=== PATIENT | female | born 1980 | race Caucasian/White ===

== ENCOUNTER 2016-03-29 11:21 | Emergency (ER) | payer MEDICAID ==
[~2016-03-29] VITALS: Wt 52.0 kg
[~2016-03-29 11:21] MED LIST: ACET1TAB40 PO; ACET325T33 PO; CEPH-443 PO; DOCU-144 PO; IBUP-1542 PO; METR500T PO; MICO24CM3 VAG; PHEN-538 PO; POLY17PO6 PO
[2016-03-29] MEDS ORDERED: AZIT250T6 PO ×2 (13:50)
[2016-03-29] MEDS ORDERED: ACET325T33 PO (13:51)
--- NOTE | 2016-03-29 14:02 | ERD ---
ER Documentation Chief Complaint Date/Time DATE: 03/29/16 TIME: 13:54 Chief Complaint R EAR PAIN FOR THE PAST FEW DAYS. COUGHING WITH NO DISTRESS HPI The patient is a 36-year-old female with no past medical history who comes with a 1 day complaint of right ear pain and decreased hearing. She reports having a cold for the last 5 days with a nonproductive cough and nasal congestion. She denies dizziness, nausea, vomiting, gait disturbance. She denies fever, chills, diarrhea, constipation, shortness of breath, difficulty breathing, sore throat, headache, neck soreness or stiffness, photophobia, dysuria, flank pain, or any other symptoms or concerns at this time. ROS All systems reviewed and are negative except as per history of present illness. Medications Home Meds Active Scripts Acetaminophen* (Tylenol*) 325 Mg Tablet, 2 TAB PO Q6 Y for PAIN AND OR ELEVATED TEMP, #20 TAB Prov:ISAAC ALVARADO, CLINICAL NUTRITION MANAGER 03/29/16 Azithromycin* (Azithromycin*) 250 Mg Tablet, 500 MG PO ONCE, #1 TAB Prov:ISAAC ALVARADO, LULÚ 03/29/16 Azithromycin* (Azithromycin*) 250 Mg Tablet, 250 MG PO DAILY, #4 TAB Prov:ISAAC ALVARADO, CLINICAL NUTRITION MANAGER 03/29/16 Acetaminophen with Codeine (Acetaminophen-Cod #3 Tablet) 1 Each Tablet, 1 TAB PO Q6H Y for PAIN, #15 TAB Prov:CASSIE NUNES PA-C 11/15/15 Cephalexin* (Keflex*) 500 Mg Capsule, 500 MG PO QID for 7 Days, CAP Prov:CASSIE NUNES PA-C 11/15/15 Phenazopyridine Hcl* (Pyridium*) 200 Mg Tab, 200 MG PO TID Y for URINARY PAIN, # 6 TAB Prov:LUIS ALBERTO VALLEJO MD 10/14/15 Cephalexin* (Keflex*) 500 Mg Capsule, 500 MG PO QID for 5 Days, CAP Prov:LUIS ALBERTO VALLEJO MD 10/14/15 Ibuprofen* (Ibuprofen*) 600 Mg Tablet, 600 MG PO Q6, #30 TAB Prov:PATRICK FARAH PA-C 08/05/15 Acetaminophen* (Tylenol*) 325 Mg Tablet, 2 TAB PO Q8 Y for PAIN AND OR ELEVATED TEMP, #20 TAB Prov:FARAHPATRICK PA-C 05/14/15 Docusate Sodium* (Colace*) 100 Mg Capsule, 100 MG PO TID, #30 CAP Prov:FARAHPATRICK Harmon PA-C 05/14/15 Polyethylene Glycol* (Miralax*) 17 Gm Powd.pack, 17 GM PO DAILY, #7 Prov:PATRICK FARAH PA-C 05/14/15 Miconazole Nitrate* (Monistat 3*) 24 Gm Cmb.pf.crm, 1 APPFUL VAG HS for 3 Days, TUB X 3 Prov:GABRIELLA RITTER 11/22/14 Metronidazole* (Flagyl*) 500 Mg Tablet, 500 MG PO TID for 7 Days, TAB Prov:STONEGABRIELLA Romeo 11/22/14 Allergies Allergies: Coded Allergies: amoxicillin (Verified Allergy, Unknown, 11/14/15) PMhx/Soc History of Surgery: Yes (BREAST AUGMENTATION 4 YEARS AGO) Anesthesia Reaction: No Hx Neurological Disorder: No Hx Respiratory Disorders: No Hx Cardiac Disorders: No Hx Psychiatric Problems: No Hx Miscellaneous Medical Probl: No Hx Alcohol Use: No Hx Substance Use: No Hx Tobacco Use: No Physical Exam Vitals Vital Signs Date Time Temp Pulse Resp B/P Pulse Ox O2 Delivery O2 Flow Rate FiO2 03/29/16 11:29 98.5 80 21 115/69 98 Physical Exam INITIAL VITAL SIGNS: Reviewed by me, afebrile, no tachycardia, oximetry 98% on room air, no tachypnea. GENERAL: Alert. Well developed and well nourished. No respiratory distress. Well -appearing. Nontoxic appearing. No acute distress. HEAD: Head is normocephalic. Atraumatic. No sinus tenderness to palpation. EYES: EOMI. PERRL. No scleral icterus. No conjunctival injection. No clear purulent drainage. ENT: External ears, nose, and mouth normal. Bilateral ear canals clear. Left tympanic membrane pearly/valdes, no erythema, effusion, bulging, or retraction. + Right tympanic membrane with erythema and bulging. No effusion appreciated. Nasal passages patent and without rhinorrhea. Oropharynx is clear and without erythema or exudates. Tonsils +2 and without erythema or exudates. Airway patent. Uvula midline. Moist mucous membranes. NECK: Supple. Full range of motion. Trachea midline. No meningismus. No lymphadenopathy. RESPIRATORY: No tachypnea. Clear to auscultation bilaterally. No wheezing, rales , or rhonchi. CV: Regular rate and rhythm. No murmurs, rubs, or gallops ABDOMEN: Soft, non-distended, non-tender. No guarding. No rebound. No masses. Bowel sounds normal in all quadrants. BACK: No CVA tenderness. Full ROM. EXTREMITIES: No obvious deformity. No clubbing or cyanosis. No edema. SKIN: Warm and dry. No diaphoresis. No obvious rashes or lesions. NEUROLOGIC: Alert and oriented x 3. Appropriate. Face is symmetric. Speech is normal. Moves all extremities equally. Procedures/MDM Nursing Notes Reviewed Previous Medical Records requested via [employer]. EMERGENCY DEPARTMENT COURSE / MEDICAL DECISION MAKING: The patient comes to the ED secondary to right-sided ear pain and decreased hearing for 1 day. Differential diagnosis upon initial evaluation includes but is not limited to: Otitis media, otitis externa, cerumen impaction, viral syndrome, URI, pneumonia , sepsis, meningitis, and others. The patient's history and physical exam are most consistent with right otitis media without effusion. Given the patient's history of present illness, well appearance, afebrile, benign physical exam, oximetry 98% on room air, I have low suspicion at this time for pneumonia, sepsis, meningitis, or any other serious cause of the patient's symptoms. She did not have any clinical evidence of exposed otitis externa or cerumen impaction. Her right tympanic membrane had erythema and bulging consistent with otitis media. She did not have any dizziness, nausea, or vomiting. As such, I feel that the patient is an appropriate candidate for outpatient management and follow-up at this time. Final impression: Otitis media of the right ear Viral syndrome Based on patient's history of present illness and physical examination the decision was made to discharge. There is no evidence of life threatening injuries or illnesses at this time. On re-examination, patient resting in no distress, stable vital signs, reports feeling better and safe for discharge with outpatient follow up with PMD in 2-3 days. Patient given return precautions. She verbalized understanding and agreed to return precautions. She will return here immediately for any new or worsening symptoms. Prescriptions Azithromycin, as the patient has a documented allergy to amoxicillin Tylenol Departure Diagnosis: Primary Impression: Otitis media of right ear Otitis media type: other nonsuppurative Chronicity: acute Recurrence: not specified as recurrent Qualified Code: H65.191 - Other acute nonsuppurative otitis media of right ear, recurrence not specified Additional Impression: Viral syndrome Condition: Stable Patient Instructions: Otitis Media, Abx Tx (Adult) Referrals: your doctor Additional Instructions: Llame al doctor MAANA y kalen zeferino LUIS PARA DENTRO DE 2-3 FALK.Dgale a la secretaria que nosotros le instruimos hacer esta luis.Avise o llame si vaca condicin se empeora antes de la luis. Regresa aqui si peor o no mejor. ISAAC ALVARADO, CLINICAL NUTRITION MANAGER Mar 29, 2016 14:02
== END 2016-03-29 14:09 | disposition home or self-care (01) ==
LOC: FTE 11:21
DX: H65.191 Other acute nonsuppurative otitis media, right ear (principal); B34.9 Viral infection, unspecified
CPT/HCPCS: 99283

== ENCOUNTER 2016-05-08 09:41 | Emergency (ER) | payer MEDICAID ==
[~2016-05-08] VITALS: Wt 52.0 kg
[~2016-05-08 09:41] MED LIST changes: +AZIT250T6 PO
[2016-05-08] MEDS ORDERED: LEVALBUTEROL (NEB) 1.25 MG/0.5 ML AMP INH STA (10:38)
[2016-05-08] MEDS ORDERED: predniSONE 20 MG TAB PO STA (10:38)
--- NOTE | 2016-05-08 10:49 | ERD ---
ER Documentation Chief Complaint Date/Time DATE: 05/08/16 TIME: 10:46 Chief Complaint ASTHMA X 1 WEEK HPI This is a 36-year-old female presenting to the emergency department for rhinitis , rhinorrhea, wheezing and cough 1 week. Patient has a history of seasonal allergies and asthma and has been using her Proventil inhaler and loratadine without relief of symptoms. No shortness of breath or difficulty breathing. No difficulty swallowing or drooling. No chest pain. No fevers or chills. ROS All systems reviewed and are negative except as per history of present illness. Medications Home Meds Active Scripts Fluticasone Propionate (Flonase Allergy Relief) 9.9 Ml [place].susp, 1 SPRAY NASAL DAILY, #1 BOTTLE TO EACH NOSTRIL Prov:SYD WALDROP NP 05/08/16 Albuterol Sulfate* (Proair HFA*) 8.5 Gm Hfa.aer.ad, 2 PUFF INH Q4, #1 INHALER Prov:SYD WALDROP NP 05/08/16 Prednisone* (Prednisone*) 20 Mg Tab, 40 MG PO DAILY for 4 Days, TAB Prov:SYD WALDROP NP 05/08/16 Acetaminophen* (Tylenol*) 325 Mg Tablet, 2 TAB PO Q6 Y for PAIN AND OR ELEVATED TEMP, #20 TAB Prov:ISAAC ALVARADO NP 03/29/16 Azithromycin* (Azithromycin*) 250 Mg Tablet, 500 MG PO ONCE, #1 TAB Prov:ISAAC ALVARADO NP 03/29/16 Azithromycin* (Azithromycin*) 250 Mg Tablet, 250 MG PO DAILY, #4 TAB Prov:ISAAC ALVARADO NP 03/29/16 Acetaminophen with Codeine (Acetaminophen-Cod #3 Tablet) 1 Each Tablet, 1 TAB PO Q6H Y for PAIN, #15 TAB Prov:CASSIE NUNES PA-C 11/15/15 Cephalexin* (Keflex*) 500 Mg Capsule, 500 MG PO QID for 7 Days, CAP Prov:CASSIE NUNES PA-C 11/15/15 Phenazopyridine Hcl* (Pyridium*) 200 Mg Tab, 200 MG PO TID Y for URINARY PAIN, # 6 TAB Prov:LUIS ALBERTO VALLEJO MD 10/14/15 Cephalexin* (Keflex*) 500 Mg Capsule, 500 MG PO QID for 5 Days, CAP Prov:LUIS ALBERTO VALLEJO MD 10/14/15 Ibuprofen* (Ibuprofen*) 600 Mg Tablet, 600 MG PO Q6, #30 TAB Prov:PATRICK FARAH PA-C 08/05/15 Acetaminophen* (Tylenol*) 325 Mg Tablet, 2 TAB PO Q8 Y for PAIN AND OR ELEVATED TEMP, #20 TAB Prov:PATRICK FARAH PA-C 05/14/15 Docusate Sodium* (Colace*) 100 Mg Capsule, 100 MG PO TID, #30 CAP Prov:PATRICK FARAH PA-C 05/14/15 Polyethylene Glycol* (Miralax*) 17 Gm Powd.pack, 17 GM PO DAILY, #7 Prov:PATRICK FARAH PA-C 05/14/15 Miconazole Nitrate* (Monistat 3*) 24 Gm Cmb.pf.crm, 1 APPFUL VAG HS for 3 Days, TUB X 3 Prov:GABRIELLA RITTER 11/22/14 Metronidazole* (Flagyl*) 500 Mg Tablet, 500 MG PO TID for 7 Days, TAB Prov:GABRIELLA RITTER 11/22/14 Allergies Allergies: Coded Allergies: amoxicillin (Verified Allergy, Unknown, 11/14/15) PMhx/Soc History of Surgery: Yes (BREAST AUGMENTATION 4 YEARS AGO) Anesthesia Reaction: No Hx Neurological Disorder: No Hx Respiratory Disorders: No Hx Cardiac Disorders: No Hx Psychiatric Problems: No Hx Miscellaneous Medical Probl: No Hx Alcohol Use: No Hx Substance Use: No Hx Tobacco Use: No Physical Exam Vitals Vital Signs Date Time Temp Pulse Resp B/P Pulse Ox O2 Delivery O2 Flow Rate FiO2 05/08/16 10:46 80 20 96 21 05/08/16 09:46 98.0 90 18 102/58 99 Physical Exam Const: Alert, [id number] Head: Atraumatic Eyes: Normal Conjunctiva ENT: Normal External Ears, Nose and Mouth. Neck: Full range of motion..~ No meningismus. Resp: Clear to auscultation bilaterally. No rhonchi or crackles. Mild wheezing to bases of lungs heard posteriorly. Patient is talking in complete sentences. No stridor or labored breathing. No intercostal retractions. Cardio: Regular rate and rhythm, no murmurs Abd: Soft, non tender, non distended. Normal bowel sounds Skin: No petechiae or rashes Back: No midline or flank tenderness Ext: No cyanosis, or edema Neur: Awake and alert Psych: Normal Mood and Affect Results 24 hrs Current Medications Medications (Trade) Dose Ordered Sig/Anup Route PRN Reason Start Time Stop Time Status Last Admin Dose Admin Prednisone (Prednisone) 60 mg ONCE STAT PO 05/08/16 10:38 05/08/16 10:39 DC 05/08/16 10:46 Levalbuterol (Xopenex Neb) 1.25 mg ONCE STAT INH 05/08/16 10:38 05/08/16 10:39 DC 05/08/16 10:45 Procedures/MDM ED COURSE: The patient was stable throughout ED course. I kept the patient and/or family informed of laboratory and diagnostic imaging results throughout the ED course. Patient given Xopenex breathing treatment with prednisone 60 mg p.o. Patient: HOWARD HARRIS : 1980 Age: 36 Sex: F MR #: [id number] DOS: 05/08/16 1049 Ordering MD: SYD WALDROP NP Location: [facility] Room/Bed: PROCEDURE: XR Chest. CLINICAL INDICATION: Cough TECHNIQUE: Single frontal chest x-ray. COMPARISON: 08/05/2015 FINDINGS: No acute infiltrate, pleural effusion or pneumothorax is identified. Cardiomediastinal silhouette is within normal limits. The osseous structures are unremarkable. IMPRESSION: 1. No evidence of acute cardiopulmonary process. MDM: This is a 36-year-old female presents to the emergency department for rhinitis, rhinorrhea, wheezing and cough 1 week. Patient has a history of asthma. Patient has mild wheezing upon initial exam. Patient given 1 Xopenex breathing treatment with prednisone 60 mg p.o. upon reassessment, wheezing has diminished. Patient states she is breathing much better. No fevers or chills. Chest x-ray reviewed by radiologist as no evidence of acute cardiopulmonary process. No signs or symptoms of respiratory distress. No stridor, labored breathing or intercostal retractions. Patient is talking in complete sentences. Remains hemodynamically stable. Low suspicion for pneumonia, pleural effusion or pneumothorax. Diagnosis is asthma with acute exacerbation. Secondary diagnosis is seasonal allergies. Patient is appropriate for outpatient management will be given prescription for prednisone, Tylenol and Flonase. Instructed patient to follow-up with primary care provider in the next 24-48 hours for reassessment and additional management. Return to ED for any high fever, chest pain, difficulty breathing, shortness breath, wheezing, vomiting, diarrhea, abdominal pain or any new or worsening symptoms. Patient verbalizes understanding. All questions answered at discharge. Departure Diagnosis: Primary Impression: Asthma with acute exacerbation Asthma severity: unspecified severity Qualified Code: J45.901 - Asthma with acute exacerbation, unspecified asthma severity Condition: Stable SYD WALDROP NP May 08, 2016 10:49
--- NOTE | 2016-05-08 11:03 | RADRPT ---
PROCEDURE: XR Chest. CLINICAL INDICATION: Cough TECHNIQUE: Single frontal chest x-ray. COMPARISON: 08/05/2015 FINDINGS: No acute infiltrate, pleural effusion or pneumothorax is identified. Cardiomediastinal silhouette i s within normal limits. The osseous structures are unremarkable. IMPRESSION: 1. No evidence of acute cardiopulmonary process. RPTAT: QQ .Fadi Gutierrez MD, MD Date Time Electronically viewed and signed by .Fadi Gutierrez MD, on 05/08/2016 11:02 .R/
[2016-05-08] MEDS ORDERED: ALBU8.5H3 INH (11:21)
[2016-05-08] MEDS ORDERED: FLUT9.9S NASAL (11:21)
[2016-05-08] MEDS ORDERED: PRED20TA PO (11:21)
== END 2016-05-08 11:34 | disposition home or self-care (01) ==
LOC: FTE 09:41
DX: J45.901 Unspecified asthma with (acute) exacerbation (principal)
CPT/HCPCS: 71010; 94664; J7512; Z7502; Z7610

== ENCOUNTER 2016-05-17 14:56 | Emergency (ER) | payer MEDICAID ==
[~2016-05-17] VITALS: Ht 152.4 cm; Wt 53.5 kg
[~2016-05-17 14:56] MED LIST changes: +ALBU8.5H3 INH; +FLUT9.9S NASAL; +PRED20TA PO
[2016-05-17 15:19] VITALS: Ht 152.4 cm; Wt 53.5 kg
[2016-05-17] MEDS ORDERED: ALBUTEROL 0.083% (NEB) 2.5 MG/3 ML AMP HHN STA (16:31)
--- NOTE | 2016-05-17 16:56 | RADRPT ---
PROCEDURE: Chest Radiograph. CLINICAL INDICATION: Cough TECHNIQUE: Single frontal chest radiograph. COMPARISON: Chest radiograph 05/08/2016 FINDINGS: The cardiomediastinal silhouette is within normal limits. No infiltrate or effusion is seen. Th e bones are intact. IMPRESSION: 1. Unremarkable chest radiograph. RPTAT: KK .Suraj Lucia MD, MD Date Time Electronically viewed and signed by .Suraj Lucia MD, on 05/17/2016 16:56 .B/
[2016-05-17] MEDS ORDERED: ALBU8.5H3 INH (17:17)
[2016-05-17] MEDS ORDERED: BENZ100C70 PO (17:18)
[2016-05-17] MEDS ORDERED: CETI10CA PO (17:18)
--- NOTE | 2016-05-17 17:39 | ERD ---
ER Documentation Chief Complaint Date/Time DATE: 05/17/16 TIME: 17:37 Chief Complaint ASTHMA EXACERBATION X 3 WEEKS NO EFFECT WITH INHALER USE HPI Patient is a 36-year-old female presents to the ED with asthma exacerbation and cough since this weekend. She states that she was here 10 days ago with similar complaints and was given a breathing treatment. She stated improvement in symptoms however she states in the last couple of days she has had increase in coughing and wheezing and runny nose. She states that she is using her inhaler with minimal relief. Denies abdominal pain, nausea, vomiting or diarrhea. Denies headache or dizziness. Denies chest pain or difficulty breathing. Denies leg pain or swelling. Denies recent surgeries or recent travel. Denies fever or chills. ROS All systems reviewed and are negative except as per history of present illness. Medications Home Meds Active Scripts Cetirizine Hcl* (Zyrtec*) 10 Mg Capsule, 10 MG PO DAILY, #30 TAB.CHEW Prov:LAMBERTO BRAGG PA-C 05/17/16 Benzonatate* (Tessalon Perle*) 100 Mg Capsule, 100 MG PO Q8H Y for COUGH for 14 Days, CAP Prov:LAMBERTO BRAGG PA-C 05/17/16 Albuterol Sulfate* (Proair HFA*) 8.5 Gm Hfa.aer.ad, 2 PUFF INH Q4, #1 INHALER Prov:LAMBERTO BRAGG PA-C 05/17/16 Fluticasone Propionate (Flonase Allergy Relief) 9.9 Ml [place].susp, 1 SPRAY NASAL DAILY, #1 BOTTLE TO EACH NOSTRIL Prov:SYD WALDROP NP 05/08/16 Albuterol Sulfate* (Proair HFA*) 8.5 Gm Hfa.aer.ad, 2 PUFF INH Q4, #1 INHALER Prov:SYD WALDROP NP 05/08/16 Prednisone* (Prednisone*) 20 Mg Tab, 40 MG PO DAILY for 4 Days, TAB Prov:SYD WALDROP NP 05/08/16 Acetaminophen* (Tylenol*) 325 Mg Tablet, 2 TAB PO Q6 Y for PAIN AND OR ELEVATED TEMP, #20 TAB Prov:ISAAC ALVARADO NP 03/29/16 Azithromycin* (Azithromycin*) 250 Mg Tablet, 500 MG PO ONCE, #1 TAB Prov:ISAAC ALVARADO, BRICK TESTER 03/29/16 Azithromycin* (Azithromycin*) 250 Mg Tablet, 250 MG PO DAILY, #4 TAB Prov:ISAAC ALVARADO, BRICK TESTER 03/29/16 Acetaminophen with Codeine (Acetaminophen-Cod #3 Tablet) 1 Each Tablet, 1 TAB PO Q6H Y for PAIN, #15 TAB Prov:CASSIE NUNES PA-C 11/15/15 Cephalexin* (Keflex*) 500 Mg Capsule, 500 MG PO QID for 7 Days, CAP Prov:CASSIE NUNES PA-C 11/15/15 Phenazopyridine Hcl* (Pyridium*) 200 Mg Tab, 200 MG PO TID Y for URINARY PAIN, # 6 TAB Prov:LUIS ALBERTO VALLEJO MD 10/14/15 Cephalexin* (Keflex*) 500 Mg Capsule, 500 MG PO QID for 5 Days, CAP Prov:LUIS ALBERTO VALLEJO MD 10/14/15 Ibuprofen* (Ibuprofen*) 600 Mg Tablet, 600 MG PO Q6, #30 TAB Prov:PATRICK FARAH PA-C 08/05/15 Acetaminophen* (Tylenol*) 325 Mg Tablet, 2 TAB PO Q8 Y for PAIN AND OR ELEVATED TEMP, #20 TAB Prov:PATRICK FARAH PA-C 05/14/15 Docusate Sodium* (Colace*) 100 Mg Capsule, 100 MG PO TID, #30 CAP Prov:PATRICK FARAH PA-C 05/14/15 Polyethylene Glycol* (Miralax*) 17 Gm Powd.pack, 17 GM PO DAILY, #7 Prov:PATRICK FARAH PA-C 05/14/15 Miconazole Nitrate* (Monistat 3*) 24 Gm Cmb.pf.crm, 1 APPFUL VAG HS for 3 Days, TUB X 3 Prov:GABRIELLA RITTER 11/22/14 Metronidazole* (Flagyl*) 500 Mg Tablet, 500 MG PO TID for 7 Days, TAB Prov:GABRIELLA RITTER 11/22/14 Allergies Allergies: Coded Allergies: No Known Allergy (Unverified , 05/17/16) PMhx/Soc History of Surgery: Yes (BREAST AUGMENTATION 4 YEARS AGO) Anesthesia Reaction: No Hx Neurological Disorder: No Hx Respiratory Disorders: Yes (ASTHMA) Hx Cardiac Disorders: No Hx Psychiatric Problems: No Hx Miscellaneous Medical Probl: No Hx Alcohol Use: No Hx Substance Use: No Hx Tobacco Use: No FmHx Family History: No coronary disease, No diabetes, No other Physical Exam Vitals Vital Signs Date Time Temp Pulse Resp B/P Pulse Ox O2 Delivery O2 Flow Rate FiO2 05/17/16 16:58 76 18 96 21 05/17/16 15:19 97.8 76 18 117/67 95 Physical Exam GENERAL: Well-developed, well-nourished female. Appears in no acute distress. HEAD: Normocephalic, atraumatic. EYES: Pupils are equally reactive bilaterally. EOMs grossly intact. No conjunctival erythema. ENT: Moist mucous membranes. No uvula deviation. No kissing tonsils. No exudates. NECK: Supple. No lymphadenopathy or thyromegaly. No meningismus. negative kernig. negative brudinski. LUNG: Clear to auscultation bilaterally. No rhonchi, wheezing, rales or coarse breath sounds. No retractions or nasal flaring HEART: Regular rate and rhythm. No murmurs, rubs or gallops. Extremities: Equal pulses bilaterally. No peripheral clubbing, cyanosis or edema. No unilateral leg swelling. NEUROLOGIC: Alert and oriented. Moving all four extremities. 5/5 strength in all extremities. Normal speech. Steady gait. SKIN: Normal color. Warm and dry. No rashes or lesions. Capillary refill < 2 seconds Results 24 hrs Current Medications Medications (Trade) Dose Ordered Sig/Anup Route PRN Reason Start Time Stop Time Status Last Admin Dose Admin Albuterol (Proventil 0.083% (Neb)) 2.5 mg ONCE STAT HHN 05/17/16 16:31 05/17/16 16:34 DC 05/17/16 16:56 Procedures/MDM ER COURSE: I kept the patient and/or family informed of laboratory and diagnostic imaging results throughout the emergency room course. PROCEDURES RT consult. Negative test. Albuterol. No adverse reaction. Seen improvement in symptoms. IMAGING STUDIES [address] [address] Radiology Main Line: [phone] DIAGNOSTIC IMAGING REPORT Patient: HOWARD HARRIS : 1980 Age: 36 Sex: F MR #: [id number] DOS: 05/17/16 1631 Ordering MD: LAMBERTO BRAGG PA-C [facility] Room/Bed: PROCEDURE: Chest Radiograph. CLINICAL INDICATION: Cough TECHNIQUE: Single frontal chest radiograph. COMPARISON: Chest radiograph 05/08/2016 FINDINGS: The cardiomediastinal silhouette is within normal limits. No infiltrate or effusion is seen. The bones are intact. IMPRESSION: 1. Unremarkable chest radiograph. RPTAT: KK .Suraj Lucia MD, MD Date Time Electronically viewed and signed by .Suraj Lucia MD, MD on 2016 16:56 .B/ CC: LAMBERTO BRAGG PA-C MEDICAL DECISION MAKING: This is a 36-year-old female who presents with cough and wheeze 2 days. Vital signs were reviewed. Patient is afebrile. Patient is not hypoxic. Patient is nontoxic or ill-appearing. Patient has asthma exacerbation versus viral URI. X -rays of by radiologist is unremarkable. My cough I reexamined patient after RT consult, seen improvement in symptoms and her wheezing had diminished. Low suspicion for ACS, PE, AAA, dissection, DVT DISCHARGE: At this time, patient is stable for discharge and outpatient management with no new complaints during the ER course. Patient was sent home with albuterol, Zyrtec and Tessalon Perles and to follow-up with her general doctor.. Patient will be discharged home with instructions to recheck for new or worsening symptoms such as fever, nausea, weakness, LOC and to follow up with primary care in the next 1-2 days. Patient was advised to return to the ER for any new or worsening symptoms. Plan was discussed and patient and/or family understands and agrees. Home instructions were given. Departure Diagnosis: Primary Impression: Asthma with acute exacerbation Asthma severity: unspecified severity Qualified Code: J45.901 - Asthma with acute exacerbation, unspecified asthma severity Condition: Stable Patient Instructions: Asthma Medications Referrals: NO PRIMARY,CARE PHYSICIAN (PCP) Additional Instructions: Call your primary care doctor TOMORROW for an appointment during the next 1-2 days.See the doctor sooner or return here if your condition worsens before your appointment time. LAMBERTO BRAGG PA-C May 17, 2016 17:39
[2016-05-17 17:40] VITALS: BP 120/65; PULSE 77; RESP 16; TEMP 97.8
== END 2016-05-17 17:42 | disposition home or self-care (01) ==
LOC: FTE 14:56
DX: J45.901 Unspecified asthma with (acute) exacerbation (principal)
CPT/HCPCS: 71010; 94664; Z7502; Z7610

== ENCOUNTER 2017-06-27 10:02 | Emergency (ER) | END 2017-06-27 13:14 | disposition home or self-care (01) ==

== ENCOUNTER 2017-10-22 16:27 | Emergency (ER) | END 2017-10-22 20:18 | disposition home or self-care (01) ==

== ENCOUNTER 2018-01-07 19:40 | Emergency (ER) | END 2018-01-07 22:49 | disposition home or self-care (01) ==